=== PATIENT | male | born 1985 | race Caucasian/White ===

== ENCOUNTER → 2017-06-15 | Emergency (ER) | payer BC ==
[~2017-06-15] VITALS: Ht 177.8 cm; Wt 68.9 kg
[~2017-06-15] MED LIST: IBUPROFEN600 MG ORAL; Norco 5mg/325mg tab ORAL ONE; ZOFRAN4 MG ORAL
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
[2017-06-15 22:16] VITALS: BP 123/79
== END | disposition home or self-care (01) ==
LOC: EMR 22:10
DX: S16.1XXA Strain of muscle, fascia and tendon at neck level, initial encounter (principal); S63.642A Sprain of metacarpophalangeal joint of left thumb, initial encounter; V43.52XA Car driver injured in collision with other type car in traffic accident, initial encounter; Y92.410 Unspecified street and highway as the place of occurrence of the external cause; Z88.6 Allergy status to analgesic agent
CPT/HCPCS: 29260; 99283

== ENCOUNTER 2018-07-14 20:49 | Emergency (ER) | payer BC, MEDICAID ==
[~2018-07-14] VITALS: Ht 177.8 cm; Wt 63.5 kg
[~2018-07-14 20:49] MED LIST changes: -Norco 5mg/325mg tab ORAL ONE
[2018-07-14] MEDS ORDERED: Tetanus/Diptheria/Pertussis Vaccine 0.5ml Syr IM ONE (21:45)
[2018-07-14] MEDS ORDERED: CEPHALEXIN500 MG ORAL (21:50)
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
[2018-07-14 22:30] VITALS: BP 130/81
[2018-07-14 22:43] LABS: ALANINE AMINOTRANSFERASE 32 U/L (12-78); ALBUMIN 4.1 G/DL (3.4-5.0); ALKALINE PHOSPHATASE 88 U/L (46-116); ASPARTATE AMINO TRANSFERASE 33 U/L (15-37); BILIRUBIN,DIRECT < 0.1 MG/DL (0.0-0.3); BILIRUBIN,TOTAL 0.2 MG/DL (0.2-1.0)
== END 2018-07-14 22:30 | disposition home or self-care (01) ==
LOC: EMR 22:03
DX: S99.922A Unspecified injury of left foot, initial encounter (principal); W22.8XXA Striking against or struck by other objects, initial encounter; Y93.01 Activity, walking, marching and hiking; Y92.098 Other place in other non-institutional residence as the place of occurrence of the external cause
CPT/HCPCS: 36415; 80076; 90471; 90715; 99283

== ENCOUNTER 2018-07-19 12:46 | Emergency (ER) | payer MEDICAID ==
[~2018-07-19] VITALS: Ht 177.8 cm; Wt 64.4 kg
[~2018-07-19 12:46] MED LIST changes: +CEPHALEXIN500 MG ORAL
[2018-07-19 13:23] VITALS: BP 121/76
--- NOTE | 2018-07-19 13:23 | Emergency Room Report ---
History of Present Illness General Chief Complaint: Wound Recheck/Suture Removal Source: Patient Present Illness HPI 32-year-old male patient presents ER requesting wound check and lab results. Reports that he was seen in the ER one week ago after injuring his toenail walking up the stairs. Reports seen at that time and discharged with antibiotics, was instructed to take antibiotics if symptoms worsen or signs of infection present. Also requesting lab results from previous visit, states he is currently taking medications that need his liver enzymes to be monitored, is supposed to be monitored by his primary care provider but his doctor was "out". Denies new or worsening of symptoms. Reports wearing open toe shoes. Denies fever, chest pain, shortness of breath. is currently living in a sober living facility. states taking Depakote and mirtazapine. is been keeping wound clean and dry, has been applying Neosporin to affected area. Allergies: Coded Allergies: CODEINE (Unverified Allergy, Unknown, 06/19/15) Patient History Past Medical History: see triage record Reviewed Nursing Documentation: PMH: Agreed; PSxH: Agreed Nursing Documentation-PMH Past Medical History: No History, Except For Hx Gastrointestinal Problems: Yes Review of Systems All Other Systems: negative except mentioned in HPI Physical Exam Vital Signs Date Time Temp Pulse Resp B/P (MAP) Pulse Ox O2 Delivery O2 Flow Rate FiO2 07/19/18 12:55 98.6 98 18 121/76 98 Room Air 98.6 Sp02 EP Interpretation: reviewed, normal General Appearance: well appearing, no apparent distress, alert, GCS 15, non- toxic Head: normocephalic, atraumatic Eyes: bilateral eye normal inspection, bilateral eye PERRL ENT: hearing grossly normal, normal pharynx, no angioedema, normal voice, uvula midline, moist mucus membranes Neck: full range of motion Respiratory: lungs clear, normal breath sounds, no rhonchi, no respiratory distress, no accessory muscle use, no wheezing, speaking full sentences Cardiovascular #1: regular rate, rhythm, no edema Cardiovascular #2: 2+ radial (R), 2+ radial (L) Musculoskeletal: back normal, digits/nails normal, gait/station normal, normal range of motion, non-tender Skin: other - Left second toe: vertically split toenail in half down the midline, no active bleeding, dried scab healing wound no erythema or edema, no TTP, sensation intact to light touch, no subungual hematoma Medical Decision Making PA Attestation Dr. Torrez is my supervising Physician whom patient management has been discussed with. Diagnostic Impression: Primary Impression: Encounter for wound re-check ER Course Pt. presents to the ED requesting wound check of toe and requesting lab results. Ddx considered but are not limited to cellulitis, abscess, wound check, folliculitis, subungual hematoma, nail bed damage. Vital signs: are WNL, pt. is afebrile ER COURSE: No injury or trauma since previous visit, does not require imaging. Wound has no signs of infection., no erythema, no edema, no TTP, sensation is intact to light touch, no ecchymosis. low suspicion for cellulitis. Advised patient to follow-up with primary care provider but do not believe patient needs to begin taking oral antibiotics at this time. instructed patient follow up with resin filterer, provided with contact information for podiatry. call to schedule appointment. continue treating topically as previously instructed, keep clean and dry. provide patient with printed copy of lab results, discuss results with patient. lab results unremarkable. Followed PCP for further evaluation and treatment. DISCHARGE: At this time pt. is stable for d/c to home. Patient resting comfortably, in no acute distress, nontoxic appearing. Will provide printed patient care instructions and any necessary prescriptions. Care plan and follow up instructions have been discussed with the patient prior to discharge. Patient instructed to follow-up with primary care provider for further treatment and referral. Patient questions asked and answered. ER precautions given. Patient instructed to return to ER immediately for any new or worsening of symptoms including but not limited to fever, worsening of pain symptoms. - Please note that this Emergency Department Report was dictated using [employer] libr[employer] technology software, occasionally this can lead to erroneous entry secondary to interpretation by the dictation equipment. Last Vital Signs Date Time Temp Pulse Resp B/P (MAP) Pulse Ox O2 Delivery O2 Flow Rate FiO2 07/19/18 12:55 98.6 98 18 121/76 98 Room Air 98.6 Disposition: HOME, SELF-CARE Condition: Stable Patient Instructions: Wound Check Additional Instructions: Followup with primary care provider in 3 -5 days. continue with instructions as previously instructed. Do not need to take Keflex. Follow-up with podiatry. Patient questions asked and answered. ER precautions given, patient instructed to return to ER immediately for any new or worsening of symptoms. Jairon Flores Jul 19, 2018 13:23
[2018-07-19 13:40] VITALS: BP 121/76
[2018-07-19] MEDS ORDERED: Bacitracin Oint UD TOPIC ONE (13:45)
== END 2018-07-19 14:01 | disposition home or self-care (01) ==
LOC: EMR 13:34
DX: Z51.89 Encounter for other specified aftercare (principal); S99.922D Unspecified injury of left foot, subsequent encounter
CPT/HCPCS: 99282